=== PATIENT | female | born 1995 | race Asian ===

== ENCOUNTER 2025-03-22 15:26 | Emergency (ER) | payer BC ==
[~2025-03-22] VITALS: Ht 162.6 cm; Wt 60.0 kg
[2025-03-22 15:30] VITALS: O2SAT 97
[2025-03-22] MEDS: ONDANSETRON HCL 4MG/2ML INJ IV ONE (16:08)
[2025-03-22] MEDS: ACTIVATED CHARCOAL 50 G/240 ML TUBE PO ONE (16:39)
[2025-03-22 17:34] LABS: BASOPHILS % 0.2 % (0.0-2.0); EOSINOPHILS % 0.0 % (0.0-5.0); HEMATOCRIT. 39.7 % (36.0-48.0); HEMOGLOBIN. 13.2 g/dL (12.0-16.0); LYMPHOCYTES % 15.1 % (20.0-50.0); MEAN PLATELET VOLUME 8.3 fl (7.4-10.4); MONOCYTES % 4.1 % (2.0-8.0); NEUTROPHILS % 80.6 % (40.0-76.0); PLATELET 197 x1000/uL (130-400); RED BLOOD CELL COUNT 4.21 mill/uL (4.2-5.4); RED CELL DISTRIBUTION WIDTH 12.9 % (11.6-14.6)
[2025-03-22 17:45] LABS: CREATININE 1.3 mg/dL (0.6-1.0); UREA NITROGEN BLOOD 17.0 mg/dL (9-23)
[2025-03-22 23:03] LABS: ASPARTATE AMINOTRANSFERASE 29 IU/L (<34); BILIRUBIN DIRECT 0.2 mg/dL (<=3.0); BILIRUBIN TOTAL 0.7 mg/dL (0.1-1.0); PROTEIN TOTAL 7.4 g/dL (6.0-8.3)
[2025-03-23] MEDS: MAGNESIUM 2 G PREMIX 50 ML IV ONE (00:26)
[2025-03-23 00:58] LABS: CREATININE 1.1 mg/dL (0.6-1.0)
[2025-03-23 00:59] LABS: UREA NITROGEN BLOOD 20 mg/dL (9-23)
[2025-03-23] MEDS: POTASSIUM CHLORIDE 20MEQ/PACKET PO ONE (02:24)
[2025-03-23] MEDS: SODIUM CHLORIDE 0.9% 1,000 ML IV ONE (02:25)
[2025-03-23] MEDS: KCL 20MEQ/100ML PREMIX 100 ML IV NR (02:25)
[2025-03-23 07:38] LABS: *AMPHETAMINES SCREEN URINE NEGATIVE (NEGATIVE); *BARBITURATES SCREEN URINE NEGATIVE (NEGATIVE); *BENZODIAZEPINES SCREEN URINE NEGATIVE (NEGATIVE); *COCAINE SCREEN URINE NEGATIVE (NEGATIVE); CANNABINOID URINE SCREEN NEGATIVE (NEGATIVE); ECSTASY MDMA SCREEN URINE CONF.TEST INDICATED (NEGATIVE); METHADONE URINE SCREEN NEGATIVE (NEGATIVE); OPIATES URINE SCREEN NEGATIVE (NEGATIVE); PHENCYCLIDINE URINE SCREEN NEGATIVE (NEGATIVE)
[2025-03-23 09:00] LABS: HCG SCREEN NEGATIVE
[2025-03-23 17:46] VITALS: BP 111/72; PULSE 79; RESP 16; TEMP 37.2; O2SAT 100
== END 2025-03-23 17:56 ==
LOC: EDSEX 15:26 → ER 15:26
DX: T50.902A Poisoning by unspecified drugs, medicaments and biological substances, intentional self-harm, initial encounter (principal); R45.851 Suicidal ideations; F41.9 Anxiety disorder, unspecified; F32.A Depression, unspecified; Z20.822 Contact with and (suspected) exposure to COVID-19; Y92.89 Other specified places as the place of occurrence of the external cause
CPT/HCPCS: 80076; 80048 ×2; 80307 ×2; 80329 ×2; 80320; 85025; 36415 ×2; 93005 ×2; 96375; 99285; 87426; 80305; 84703; 83735; 96367; 96361; 96365; 96366; J2405; J3475; J3480; Z7610 ×2; G0480